=== PATIENT | male | born 1955 | race Caucasian/White ===

== ENCOUNTER 2018-01-11 16:36 | Observation (INO) ==
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
[2018-01-11 17:35] LABS: Activated Partial Thrombo Time 28.5 sec (24.3-30.1); Baso % (Auto) 0.6 % (0.0-2.0); Hemoglobin 13.2 gm/dL (13.0-17.0); INR 1.1 Ratio; Lymph # (Auto) 1.2 th/mm3 (1.0-4.8); Mean Corpuscular HGB Conc 32.3 % (32.0-36.0); Mean Corpuscular Hemoglobin 27.9 pg (27.0-34.0); Mean Corpuscular Volume 86.3 fL (80.0-100.0); Mean Platelet Volume 8.3 fL (7.0-11.0); Mono # (Auto) 0.4 th/mm3 (0.0-0.9); Mono % (Auto) 9.6 % (0.0-8.0); Neut # (Auto) 2.3 th/mm3 (1.8-7.7); Neut % (Auto) 57.8 % (16.0-70.0); Platelet Count 185 th/mm3 (150-450); Prothrombin Time 10.9 sec (9.8-11.6); Red Blood Count 4.75 mil/mm3 (4.50-5.90); Red Cell Distribution Width 16.1 % (11.6-17.2); White Blood Count 3.9 th/mm3 (4.0-11.0)
--- NOTE | 2018-01-11 17:40 | XR ---
EXAM DATE: 01/11/2018 5:33 PM EDT AGE/SEX: 62 years / Male INDICATIONS: Chest pain. CLINICAL DATA: This is the patient's initial encounter. Patient reports that signs and symptoms have been present for 3 days and indicates a pain score of 5/10. MEDICAL/SURGICAL HISTORY: Congestive heart failure. . Bilateral above knee amputations. COMPARISON: No prior exams available for comparison. FINDINGS: Lungs are hyperinflated. There is interstitial prominence throughout both lungs. Mild artifact is mariana ntified in the apices. There is no evidence of consolidating airspace disease, mass densities or effusions. Heart and mediastinal structures are stable. CONCLUSION: 1. COPD 2. No evidence of acute process. Electronically signed by: Mahesh Small MD 01/11/2018 5:39 PM EDT
[2018-01-11 18:05] LABS: Anion Gap 9 meq/L (5-15); Blood Urea Nitrogen 19 mg/dL (7-18); Calcium 9.5 mg/dL (8.5-10.1); Carbon Dioxide 23.1 meq/L (21.0-32.0); Chloride 108 meq/L (98-107); Glomerular Filtration Rate 49 mL/min (>89); Glucose,Random 118 mg/dL (74-106); Potassium 4.1 meq/L (3.5-5.1); Sodium 140 meq/L (136-145)
--- NOTE | 2018-01-11 18:10 | CT ---
EXAM DATE: 01/11/2018 6:05 PM EDT AGE/SEX: 62 years / Male INDICATIONS: Dizziness. CLINICAL DATA: This is the patient's initial encounter. Patient reports that signs and symptoms have been present for 1 day and indicates a pain score of 7/10. MEDICAL/SURGICAL HISTORY: Cardiovascular disease. HIV. . Cardiac cath, bilateral amputated lower l egs. RADIATION DOSE: 56.35 CTDI (mGy) COMPARISON: No prior exams available for comparison. TECHNIQUE: CT of the head without contrast. Using automated exposure control and adjustment of the mA and/or kV according to patient size, radiation dose was kept as low as reasonably achievable to ob tain optimal diagnostic quality images. DICOM format image data is available electronically for revi ew and comparison. FINDINGS: Cerebrum: The ventricles are enlarged.. No evidence of midline shift, mass lesion, hemorrhage or ac judy infarction. No extraaxial fluid collections are seen. Posterior Fossa: The cerebellum and brainstem are intact. The 4th ventricle is midline. The cerebe llopontine angle is unremarkable. Extracranial: The visualized portion of the orbits is intact. Skull: The calvaria is intact. No evidence of skull fracture. CONCLUSION: 1. Mild ventriculomegaly. 2. No evidence of acute infarct, hemorrhage, mass or edema. Electronically signed by: Mahesh Small MD 01/11/2018 6:09 PM EDT
[2018-01-11] MEDS: Sod Chloride 0.9% Inj 1,000 ML IV.CONT SCH (19:14)
[2018-01-11 20:17] LABS: Creatine Kinase 46 U/L (39-308)
[2018-01-11 23:20] LABS: Creatine Kinase 29 U/L (39-308)
[2018-01-12] MEDS: Sod Chloride 0.9% Inj 1,000 ML IV.CONT SCH (05:21)
[2018-01-12] MEDS ORDERED: Acetaminophen 500 MG Tablet PO PRN (08:02)
--- NOTE | 2018-01-12 08:02 | P.HPCA ---
History of Present Illness Primary Care Physician: No Primary Care Physician Chief Complaint: Chest pain History of Present Illness: 62-year-old male history of coronary artery disease, cardiac stents, hypertension, and HIV presents emergency room for further evaluation of nonexertional chest pain. Onset yesterday afternoon while shopping. Location substernal. Characterized stabbing. Discomfort came on quickly. Associated symptoms included dizziness, dyspnea, diaphoresis, and nausea. Denied vomiting. Hurt to take a deep breath. Moderate in severity. No precipitating or relieving factors. Duration constant. Reports syncopal episode during onset of "not feeling right." Friend was with him, reports less than 5 minute LOC. Wheelchair bound as he bilateral BKA, did not occur injury during event. Current chest discomfort is mild, easily reproduced with palpation and movement. Endorses similar pain in the past prior to past cardiac events 20 years ago. Does not follow with a balloon pilot, no recent cardiac testing. Last catheterization "a long time ago, possibly 10 years," completed [place]. Reporting x3 cardiac, each time requiring ballooning or a stent. x2 cardiac catheterizations completed [place], [place] 1 cardiac catheterization completed [place], [place]. Currently not taking any cardiac medications. Does not recall his last CD4 count. - Diagnosis (1) Chest pain, atypical (2) History of coronary artery disease (3) HIV (human immunodeficiency virus infection) (4) Tobacco abuse (5) Hypertension Review of Systems No: All other systems reviewed negative except as stated in [facility] - History History Provided By: Patient (patient ) - Medical History Medical History: Medical History (Last Updated 01/12/18 @ 09:18 by ALCIDES Kevin) Chest pain Coronary artery disease HIV (human immunodeficiency virus infection) Smoker - Surgical History Surgical History: Surgical History (Last Updated 01/12/18 @ 09:18 by ALCIDES Kevin) Amputated below knee Hx of cardiac catheterization Hx of heart artery stent - Tobacco History Second Hand Smoke Exposure: Yes Tobacco Use In Past 30 Days: Yes Smoking Status: Current every day smoker (1 pack/weekly.) Tobacco Type: Cigarettes - Alcohol History How Often Do You Have a Drink Containing Alcohol: Never - Substance Use History Substance History: No History of Abuse - Travel History History of Recent Travel: No Recent Travel in the [place] Within the Last 8 Weeks: No Recent Travel Out of the Country Within the Last 8 Weeks: No - Immunization History Tetanus Immunization: Unsure Hx Influenza Vaccine This Season: No Medications and Allergies Active Medications: Active Medications Sodium Chloride (Ns Inj) 1,000 mls @ 100 mls/hr IV.CONT .Q10H [facility] Last Admin: 01/12/18 05:21 Dose: 100 mls/hr Nitroglycerin (Nitrostat Sl) 0.4 mg SL Q5M PRN PRN Reason: CHEST PAIN Sodium Chloride (Ns Flush) 2 ml IV.FLUSH UNSCH PRN PRN Reason: FLUSH AFTER USING IV ACCESS Sodium Chloride (Ns Flush) 2 ml IV.FLUSH BID [facility] Last Admin: 01/12/18 01:31 Dose: Not Given Sodium Chloride (Ns Flush) 2 ml IV.FLUSH PRN PRN PRN Reason: FLUSH AFTER USING IV ACCESS Allergies Allergy/AdvReac Type Severity Reaction Status Date / Time ciprofloxacin [From Cipro] Allergy Hives Verified 01/11/18 16:52 Penicillins Allergy Hives Verified 01/11/18 16:52 Home Medications Medication Instructions Recorded Confirmed Type volflezqd-msmldjqpxejh-drzlfes 1 tab PO DAILY 01/11/18 01/11/18 History [Atripla] Exam Vital signs: Vital Signs 01/11/18 16:43 01/11/18 16:50 01/11/18 16:53 Temperature 98.2 F 98.2 F Pulse Rate 79 77 81 Respiratory Rate 18 18 18 Blood Pressure 198/98 H 198/98 H 198/98 H Pulse Oximetry 97 99 98 01/11/18 17:40 01/11/18 19:15 01/11/18 19:16 Temperature Pulse Rate 80 80 Respiratory Rate 18 16 Blood Pressure 167/79 H 175/70 H Pulse Oximetry 98 98 01/11/18 20:00 01/11/18 23:52 01/12/18 04:00 Temperature 98.6 F 98.5 F Pulse Rate 77 72 83 Respiratory Rate 16 15 16 Blood Pressure 175/84 H 181/86 H 198/99 H Pulse Oximetry 98 96 97 01/12/18 04:28 Temperature Pulse Rate Respiratory Rate Blood Pressure 177/82 H Pulse Oximetry Intake & Output 01/11/18 01/12/18 01/12/18 18:59 06:59 18:59 Intake Total 1000 / 1000 Balance 1000 / 1000 Weight 63.503 kg 63.5 kg Intake: IV 1000 / 1000 NS Inj 1,000 ML @ 100 mls/hr IV 1000 / 1000 .CONT .Q10H [facility] Rx#:[id number] Other: Date of Last Bowel Movement 01/11/18 Weight On Admission 63.503 kg Narrative: male who appears older than stated age in no acute distress, easily awakens from sleep. - Constitutional no acute distress, thin, chronically ill appearing, disheveled, cooperative - Routine HEENT Exam Head: Present: normocephalic, atraumatic - Routine Neck Exam Present: supple, full ROM, JVD - Routine Chest/Breast/Axilla Exam Chest wall: Present: tenderness (Chest wall pain easily reproduced with palpation.) - Routine Respiratory Exam Present: CTA bilaterally, diminished air movement. Absent: rhonchi, wheezes - Routine Cardiovascular Exam Present: RRR. Absent: murmur, gallop, rubs - Routine Abdominal Exam Present: soft, normoactive bowel sounds. Absent: tenderness, distended - Routine Extremities Exam Comments: Bilateral BKA - Routine Skin Exam Present: intact, dry Comments: Tattoos - Routine Neurological Exam Present: alert, oriented X3 - Routine Psychiatric Exam Present: normal affect, normal thought process, cooperative. Absent: depressed , anxious Comments: Questionable insight and judgment due to noncompliance with known cardiovascular disease. Results 01/11/18 17:03 01/11/18 17:03 Cardiac Enzymes 01/11/18 01/11/18 01/11/18 Range/Units 17:03 17:03 19:00 Troponin I Less than 0.02 L Less than 0.02 L (0.02-0.05) ng/mL B-Natriuretic Peptide 467 H (0-100) pg/mL 01/11/18 Range/Units 22:25 Troponin I Less than 0.02 L (0.02-0.05) ng/mL B-Natriuretic Peptide (0-100) pg/mL Coagulation 01/11/18 01/11/18 Range/Units 17:03 17:03 PT 10.9 (9.8-11.6) sec APTT 28.5 (24.3-30.1) sec B-Natriuretic Peptide 467 H (0-100) pg/mL CBC 01/11/18 Range/Units 17:03 WBC 3.9 L (4.0-11.0) th/mm3 RBC 4.75 (4.50-5.90) mil/mm3 Hgb 13.2 (13.0-17.0) gm/dL Hct 41.0 (39.0-51.0) % Plt Count 185 (150-450) th/mm3 Neut # (Auto) 2.3 (1.8-7.7) th/mm3 Lymph # (Auto) 1.2 (1.0-4.8) th/mm3 [place] # (Auto) 0.4 (0.0-0.9) th/mm3 Eos # (Auto) 0.0 (0.0-0.4) th/mm3 Baso # (Auto) 0.0 (0.0-0.2) th/mm3 Comprehensive Metabolic Panel 01/11/18 Range/Units 17:03 Sodium 140 (136-145) meq/L Potassium 4.1 (3.5-5.1) meq/L Chloride 108 H (98-107) meq/L Carbon Dioxide 23.1 (21.0-32.0) meq/L BUN 19 H (7-18) mg/dL Creatinine 1.46 H (0.60-1.30) mg/dL Calcium 9.5 (8.5-10.1) mg/dL Intake and Output 01/11/18 01/12/18 01/12/18 22:59 06:59 14:59 Intake Total 1000 / 1000 Balance 1000 / 1000 Intake: IV 1000 / 1000 NS Inj 1,000 ML @ 100 mls/hr IV 1000 / 1000 .CONT .Q10H [facility] Rx#:[id number] Other: Date of Last Bowel Movement 01/11/18 Weight 63.503 kg 63.5 kg Weight On Admission 63.503 kg EKG interpretations - EKG EKG results cardiology: normal axis, normal QRS - Dysrhythmias Sinus rhythms and dysrhythmias: sinus rhythm - Blocks, axis, hypertrophy, ST abn Repolarization changes or abnormalities: Suggestive of hyperkalemia (NSR, peaked T waves. Reviewed telemetry overnight. 3 beats Vtach. ) Caprini VTE Risk Assessment Caprini VTE Risk Assessment: Moderate/High Risk (score >= 2) Caprini Risk Assessment Model: Point Value = 1 Point Value = 2 Point Value = 3 Point Value = 5 Age 41-60 Minor surgery BMI > 25 kg/m2 Swollen legs Varicose veins or History of unexplained or recurrent spontaneous Oral contraceptives or hormone replacement Sepsis (< 1 month) Serious lung disease, including pneumonia (< 1 month) Abnormal pulmonary function Acute myocardial infarction Congestive heart failure (< 1 month) History of inflammatory bowel disease Medical patient at bed rest Age 61-74 Arthroscopic surgery Major open surgery (> 45 min) Laparoscopic surgery (> 45 min) Malignancy Confined to bed (> 72 hours) Immobilizing plaster cast Central venous access Age >= 75 History of VTE Family history of VTE Factor V Leiden Prothrombin [id number] Lupus anticoagulant Anticardiolipin antibodies Elevated serum homocysteine Heparin-induced thrombocytopenia Other congenital or acquired thrombophilia Stroke (< 1 month) Elective arthroplasty Hip, pelvis, or leg fracture Acute spinal cord injury (< 1 month) Prophylaxis Regimen: Total Risk Factor Score Risk Level Prophylaxis Regimen 0-1 Low Early ambulation 2 Moderate Order ONE of the following: *Sequential Compression Device (SCD) *Heparin 5000 units SQ BID 3-4 Higher Order ONE of the following medications: *Heparin 5000 units SQ TID *Enoxaparin/Lovenox 40 mg SQ daily (WT < 150 kg, CrCl > 30 mL/min) *Enoxaparin/Lovenox 30 mg SQ daily (WT < 150 kg, CrCl > 10-29 mL/min) *Enoxaparin/Lovenox 30 mg SQ BID (WT < 150 kg, CrCl > 30 mL/min) AND/OR *Sequential Compression Device (SCD) 5 or more Highest Order ONE of the following medications: *Heparin 5000 units SQ TID (Preferred with Epidurals) *Enoxaparin/Lovenox 40 mg SQ daily (WT < 150 kg, CrCl > 30 mL/min) *Enoxaparin/Lovenox 30 mg SQ daily (WT < 150 kg, CrCl > 10-29 mL/min) *Enoxaparin/Lovenox 30 mg SQ BID (WT < 150 kg, CrCl > 30 mL/min) AND *Sequential Compression Device (SCD) Assessment and Plan - Assessment (1) Chest pain, atypical Code(s): R07.89 - Other chest pain Status: Acute Plan: Admitted chest pain center. ACS ruled out 3 sets of EKGs and cardiac enzymes. Monitor on telemetry overnight. Telemetry reviewed, 3 beat run V. tach noted. Seen and evaluated by Dr. Bernarda Umana. Proceed with chemical stress test today. Strongly encouraged and stressed importance of establishing with a balloon pilot and compliance with cardiac medications. Will discharge with beta- garrison. Discussed benefits of medication. (2) History of coronary artery disease Code(s): Z86.79 - Personal history of other diseases of the circulatory system Status: Chronic Plan: Begin beta-garrison upon discharge. Instructed to establish with a balloon pilot. Instructed to quit smoking. (3) HIV (human immunodeficiency virus infection) Code(s): B20 - Human immunodeficiency virus [HIV] disease Status: Chronic Plan: Continue antiviral. Follow up with infectious disease as previously instructed. (4) Tobacco abuse Code(s): Z72.0 - Tobacco use Status: Chronic Plan: Strongly encouraged and stressed importance of tobacco cessation. Instructed to quit smoking. (5) Hypertension Code(s): I10 - Essential (primary) hypertension Status: Acute Plan: Amlodipine 5mg x1 dose now. Continue to monitor. Consider Rx upon discharge. Instructed to establish with a PCP for further monitoring. Encouraged low sodium cardiac diet and smoking cessation. H&P: Quality - VTE Deep Vein Thrombosis/Pulmonary Embolism Present on Admission: No (5) Hypertension Qualifiers: Hypertension type: unspecified Qualified Code(s): I10 - Essential (primary) hypertension
[2018-01-12] MEDS ORDERED: EFAVIRENZ EMTRICITABIN TENOFOV PO SCH (09:30)
[2018-01-12] MEDS ORDERED: Regadenoson Inj 0.4 MG/5 ML Syringe IV.PUSH ONE (10:51)
[2018-01-12] MEDS ORDERED: amLODIPine 5 MG Tablet PO SCH (11:00)
[2018-01-12] MEDS ORDERED: CAFFEINE CITRATED 60 MG/3 ML ONE (11:22)
[2018-01-12] MEDS ORDERED: Tenofovir 300 MG Tablet PO SCH (12:00)
--- NOTE | 2018-01-12 13:06 | NM ---
EXAM DATE: 01/12/2018 12:07 PM EDT AGE/SEX: 62 years / Male INDICATIONS:Coronary artery disease. Angina Substernal chest pain for one day. CLINICAL DATA: This is the patient's initial encounter. Patient reports that signs and symptoms have been present for 1 day and indicates a pain score of 5/10. MEDICAL/SURGICAL HISTORY: HIV. Coronary artery stent. Bilateral below knee amputation. COMPARISON: No prior exams available for comparison. DOSE: 8.6 mCi Tc 99m Myoview at rest 25.5 mCi [id number] at stress 0.4 mg Lexiscan STRESS SYMPTOMS: Dyspnea, weird feeling and nausea. MEDICATION: 60 mg caffeine IV EJECTION FRACTION: 46 % TECHNIQUE: The patient underwent pharmacologic stress with infusion of prescribed dose. Continuous ECG tracing was monitored during stress. Gated SPECT imaging was performed after stress and conventi onal SPECT imaging was performed at rest. The examination was performed on a SPECT/CT scanner, both attenuation and non-corrected datasets were reviewed. FINDINGS: Distribution: The maximum perfused segment at stress is in the anterolateral wall. Perfusion Study: The pattern of perfusion at stress demonstrates a fixed defect in the low inferoap ical wall probably attenuation artifact without any significant ischemia.. Gated Study: There are intact wall motion and wall thickening without hypokinetic or dyskinetic segm ents. The ejection fraction is calculated at 46%. RISK CATEGORY: Low (<1% Annual Motality Rate) CONCLUSION: 1. No significant ischemia. Electronically signed by: Marzena Miles MD 01/12/2018 1:05 PM EDT
--- NOTE | 2018-01-12 19:16 | ECG ---
Date Performed: 01/11/2018 Time Performed: 19:06:41 PTAGE: 62 years EKG: Sinus rhythm WITH SINUS ARRHYTHMIA VOLTAGE CRITERIA FOR LVH TALL T-WAVES, SUGGESTS HYPERKALEMIA ABNORMAL ECG Sinc e PREVIOUS TRACING , no significant change noted DOCTOR: Bernarda Umana Interpretating Date/Time 01/12/2018 19:14:33
--- NOTE | 2018-01-12 19:17 | ECG ---
Date Performed: 01/11/2018 Time Performed: 22:24:07 PTAGE: 62 years EKG: Sinus rhythm VOLTAGE CRITERIA FOR LVH ABNORMAL ECG Since PREVIOUS TRACING , no significant change noted PREVIOUS TRACIN01/11/2018 19.06 DOCTOR: Bernarda Umana Interpretating Date/Time 01/12/2018 19:16:11
--- NOTE | 2018-01-12 19:26 | TR ---
Date Performed: 01/12/2018 Time Performed: 11:07:43 DOCTOR: Bernarda Umana DRUG LIST: CLINICAL HISTORY: REASON FOR TEST: REASON FOR ENDING: OBSERVATION: CONCLUSION: Lexiscan stress test was performed under standard four minute protocol. Radionuclid e was injected one minute prior to ending the test. Non-diagnostic ST changes laterally were noted. N uclear imaging and interpretation are pending. COMMENTS: Non-diagnostic ST changes
--- NOTE | 2018-01-12 19:28 | ECG ---
Date Performed: 01/11/2018 Time Performed: 17:46:19 PTAGE: 62 years EKG: Sinus rhythm VOLTAGE CRITERIA FOR LVH TALL T-WAVES, SUGGESTS HYPERKALEMIA ABNORMAL ECG NO PREVIOUS TRACING DOCTOR: Bernarda Umana Interpretating Date/Time 01/12/2018 19:28:04
[2018-01-12] MEDS ORDERED: Carvedilol 6.25 MG Tablet PO SCH (21:00)
== END 2018-01-12 15:43 | disposition home or self-care (01) ==
LOC: NEPGCP 16:36 → NEPC 16:36 → NEDA 16:36 → NEPGCP 19:59
PROVIDERS: ADMIT Internal Medicine Interventional Cardiology; ATTEND Internal Medicine Interventional Cardiology